=== PATIENT | female | born 1980 | race Two or more races ===

== ENCOUNTER 2017-01-05 23:49 | Emergency (ER) | payer BC ==
--- NOTE | 2017-01-06 00:05 | ED Physician Chart ---
Chief Complaint/HPI - Patient Information Date Seen:: 01/06/17 Time Seen:: 23:50 Chief Complaint:: chest pain History of Present Illness:: Patient presents to the emergency room with a history of 2 weeks of generalized anxiety but has had the onset of dull chest pain across the front of her chest since 630 PM this evening. The patient denies cough, shortness of breath, fever or chills, lower extremity swelling or pain, or other associated complaints. The pain is 7/10, dull, nonradiating, and can be reproduced with deep breathing and arm movements. Patient states that when her blood pressure was measured earlier tonight it was mildly elevated. she states she has a mild headache but declines pain meds. Allergies:: Allergies Allergy/AdvReac Type Severity Reaction Status Date / Time No Known Allergies Allergy Verified 07/02/16 03:38 Historian:: Patient Review:: Nurse's Note Reviewed Review of Systems - Review of Systems General/Constitutional: No fever, No chills, No weight loss, No weakness, No diaphoresis, No edema, No loss of appetite Head: Headache Cardio Vascular: Chest pain, No palpitations, No PND, No orthopnea, No edema Pulmonary: No SOB, No cough, No wheezing GI: No nausea, No vomiting Musculoskeletal: No back pain Psychiatric: No prior psych history, Anxiety Neurological: No syncope, No focal symptoms, No dizziness (all other review of systems was unremarkable except for that included above and in the history of present illness and chief complaint.) Past Medical History - Past Medical History Past Medical History: No significant medical hx Family History: None Social History: Non Smoker, No Drug Use, Single, Employed Surgical History: other (btl) Psychiatricy History: Other (anxiety) Family Medical History - Family Member Mother History Unknown: Yes Father History Unknown: Yes Hx Family Hypertension: Yes Hx Family Diabetes: Yes Physical Exam - Physical Examination General/Constitutional: Awake (patient is a 36-year-old overweight female who ambulates into the emergency room holding her chest but is in otherwise no apparent distress with normal respirations, normal speech, and normal skin vital signs. HEENT exam is unremarkable for JVD or stridor. Mucous membranes are moist. Chest exam is unremarkable for discoloration or asymmetry of the chest wall. The chest pain is reproducible with direct palpation over the sternum, deep breathing, and certain movements of the upper extremities. The breath sounds are clear bilaterally with no rub, rhonchi, or rales. cardiovascular exam is normal with no evidence of murmurs, extra sounds, rubs or irregularity. The abdomen is soft flat nontender with normal bowel sounds. Lower extremities are symmetrical, nontender, and are remarkable for varicose changes only. Neuro exam is grossly normal with 5 over 5 strength, normal DTRs , normal proprioception no tremor. The patient does not appear to be overtly anxious is completely cooperative and gives a cogent reliable history.), Well- developed, well-nourished, Alert, GCS 15, Non-toxic appearing, Ambulatory Labs/Radiology/EKG Results - Lab Results Results: Normal troponin I. - Radiology Results Results: Chest x-ray interpretation by myself is unremarkable for pneumothorax, abnormal aortic silhouette, or chest infiltrate. The heart looks are modestly enlarged but this may simply be due to a transverse lie secondary to body habitus. - EKG Interpretations EKG Time:: 23:53 Rate & Rhythm: nsr at [address] [place]: normal Intervals: normal Comments:: Patient has an interventricular conduction defect visible in lead aVF, there are no obvious ACS changes, and there are no prior EKGs for comparison available this evening. Assessment - Assessment General Assessment: Medical decision making: Middle-aged female with more than 4 hours of substernal chest pain, pressure like, nonradiating, with no other associated complaints other than antecedent 2 weeks of generalized anxiety. Differential includes pathology of the lungs, heart, chest wall, lower GI tract. The patient is low risk wells criterion for pulmonary embolus and perc negative. ED Septic Shock - . Is Septic Shock (SBP<90, OR Lactate>4 mmol\L) present?: No Reassessment (Disposition) - Reassessment Reassessment:: Patient has 4/10 chest pain which had decreased prior to the administration of nitroglycerin. There was no change in chest pain or headache after the nitroglycerin was given. Reassessment Condition:: Improved - Diagnosis Diagnosis:: 1 chest pain consistent with chest wall etiology. 2 history of generalized anxiety intermittently. - Aftercare/Follow up Instructions Aftercare/Follow-Up Instructions:: Refer to Discharge Instructions, Counseled pt & family regarding lab results/diagnosis & need follow up - Patient Disposition Discharge/Transfer:: Home ED Discharge Plan - Patient Disposition Admit/Discharge/Transfer: PT DISCHARGED HOME Condition at Disposition: Improved
[2017-01-06] MEDS ORDERED: Aspirin 81mg Chewable Tab ONE (00:33)
[2017-01-06] MEDS: Aspirin 81mg Chewable Tab PO STA (00:36)
--- NOTE | 2017-01-06 09:12 | Diagnostic Imaging Report ---
CHEST X-RAY: AP view INDICATION: pain COMPARISON: None FINDINGS: There is no focal consolidation or pleural effusions. Borderline prominent heart, accentuated by patient suboptimal lung volumes.. The osseous structures demonstrate no acute abnormalities. IMPRESSION: No focal airspace consolidation identified..
== END 2017-01-06 01:10 | disposition home or self-care (01) ==
LOC: ER 23:49
DX: R07.89 Other chest pain (principal); F41.9 Anxiety disorder, unspecified
CPT/HCPCS: 36415-UA; 71010-TC; 84484-TC; 93005; Z7610